=== PATIENT | female | born 1960 | race Caucasian/White ===

== ENCOUNTER → 2020-03-12 13:36 | Outpatient (CLI) | payer BC, SELFPAY ==
--- NOTE | ~2020-03-12 | MM_ITS ---
EXAMINATION: MM screening edilberto BI w roxana HISTORY: Screening TECHNIQUE: Craniocaudal and mediolateral oblique 3-D tomosynthesis images were obtained and synthetic 2-D images were generated. CAD analysis was submitted and interpreted. COMPARISON: Comparison to multiple prior studies sequentially, with oldest reviewed study dated 06/2011. BREAST PARENCHYMAL COMPOSITION: The breasts are heterogeneously dense, which may obscure small masses . FINDINGS: There is no evidence of suspicious mass, calcification, or architectural distortion to sugg est malignancy in either breast. There has been no suspicious interval change. IMPRESSION: 1. No mammographic evidence of malignancy. 2. Recommend routine screening mammography in one year. BI-RADS Category 1: Negative Reviewed, dictated and finalized at location A. N BARREL FILLER
== END ==
PROVIDERS: PCP Internal Medicine; Visit Provider Nurse Practitioner
DX: Z12.31 Encounter for screening mammogram for malignant neoplasm of breast (principal)
CPT/HCPCS: 77063; 77067

== ENCOUNTER 2020-03-13 08:48 | Outpatient (CLI) | payer BC, SELFPAY ==
--- NOTE | 2020-04-17 21:40 | WPDHOMESLEEP ---
Sleep Study - Home Unattended Date of Study: 03/13/20 Ordering Provider: Bill Ontiveros MD Interpreting Physician: Angelita Enriquez MD Home Sleep Study Type: Apnea Link Air Height: 1.63 m Weight: 87.09 kg Body Mass Index: 32.9 Neck Circumference (inches): 16.5 [place]: 11 Reason for Sleep Study loud snoring, excessive daytime sleepiness Sleep History Elaina Hutchison is a 59 year-old woman who snores loudly all the time. Her leaves the bedroom during the middle of the night. She has extremely dry cotton mouth in the morning. She has significant sinus drainage when she initially lies down to go to sleep which a noise her. Her told her that her loud snoring started about 2 years ago and it has worsened. She frequently awakens at night with heartburn, belching or coughing. She does not awaken from sleep feeling short of breath. She frequently has trouble sleep with a cold. She does not wake up gasping for breath at night and does not have breathing problems at night observed by others. She sweats excessively at night on occasion. She does not notice her heart pounding or beating irregularly at night. She frequently falls asleep during the day frequently involuntarily never while driving. She does not fall asleep while exerting physical effort. She does not have loss of muscle tone was strong emotion. She does not have daytime difficulties due to excessive sleepiness. 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 she does not feel paralyzed on waking or falling asleep and does not have vivid dreamlike scenes upon awakening or falling asleep. She is not afraid to go to sleep. She does not have nightmares. She frequently remembers her dreams. She frequently has racing thoughts. She occasionally feels sad or depressed. Very rarely she has anxiety. She occasionally has muscular tension. She frequently notices parts of her body jerking. She does not kick at night, does not have crawling and aching feelings in her legs at night, does not have any leg pain at night and does not have morning jaw pain. She occasionally grinds her teeth at night. She is not bothered by pain during the day and is not awakened by pain at night. She frequently wakes up feeling stiff in the morning with sore achy muscles occasionally with pain in the neck and spine. She has headaches, bowel disturbances, dizziness, fatigue and takes antacids regularly. she has excessive daytime sleepiness on occasion. She has gained 15 lb in the last year. Normal bedtime is 10:30 p.m. falling asleep within 30 minutes. She typically wakes up once at night or maybe not at all. If she wakes up around 4:30 a.m. she generally will stay awake. Most of the time she wakes up in the middle of the night. 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 She wakes up to urinate and will try to go back to bed. She wakes in the morning at 6:00 a.m.. On the weekends she stays awake until 1:30 a.m. and wakes at 9 in the morning. She estimates that she gets 6 hours of sleep normally. She sometimes falls asleep in the chair, , takes an unintended nap. She does not feel refreshed after a short nap. Habits: She has never smokes cigarettes. She has caffeine 1 serving per day. Alcohol is occasional, 1 or 2 drinks per month. No recreational drugs. [facility], [facility] Past Medical History Medical History (Updated 04/17/20 @ 21:52 by Angelita Enriquez MD) Chronic GERD Essential (primary) hypertension Meningioma Other hyperlipidemia Rhinitis Surgical History Surgical History (Updated 04/17/20 @ 21:50 by Angelita Enriquez MD) History of hysterectomy Family History Family History Father Hypertension Family history of diabetes mellitus in first degree relative Mother Family history of malignant neoplasm of breast in first degree relative Other Family history of attention deficit hyperactivity disorder (ADHD) Social
[2020-04-17 21:59] VITALS: BMI 32.9
== END 2020-03-13 08:49 | disposition home or self-care (01) ==
LOC: ANHCSM 08:51
PROVIDERS: PCP Internal Medicine; Visit Provider Internal Medicine
DX: G47.33 Obstructive sleep apnea (adult) (pediatric) (principal)
CPT/HCPCS: 95806

== ENCOUNTER → 2020-06-06 07:31 | Outpatient (CLI) | payer BC, SELFPAY ==
--- NOTE | ~2020-06-06 | US_ITS ---
EXAMINATION: US abdomen complete DATE: 06/06/2020 08:24 INDICATION: Abdominal pain TECHNIQUE: Multiple grayscale and Doppler ultrasound images of the abdomen were obtained. COMPARISON: 06/02/2011 FINDINGS: The head, body, and tail of the pancreas are normal. The liver demonstrates increased echog enicity, heterogenous echotexture, and decreased through transmission. No surface nodularity. Normal hepatopetal flow in the main portal vein. The gallbladder is normal with no abnormal wall thickening, pericholecystic fluid or stones. The normal common bile duct measures 4 mm. There was no sonographic Gramajo sign. The visualized portions of the aorta and inferior vena cava are normal. The right kidney measures 10.3 x 4.4 x 5.6 cm and contains a 3.5 cm cyst. The left kidney measures 11 .6 x 5.2 x 5.5 cm. The kidneys demonstrate normal parenchymal echogenicity. There is no hydronephrosi s. The spleen is normal in appearance and measures 9.7 cm. IMPRESSION: 1. Diffuse hepatic steatosis. Reviewed, dictated and finalized at location A.
== END ==
PROVIDERS: PCP Internal Medicine; Visit Provider Internal Medicine
DX: K76.0 Fatty (change of) liver, not elsewhere classified (principal)
CPT/HCPCS: 76700

== ENCOUNTER 2020-08-26 14:30 | Outpatient (RCR) | payer BC, SELFPAY ==
[2020-07-16 14:13] VITALS: BMI 31.1
[2020-07-16 14:25] VITALS: BMI 31.1
== END 2020-10-05 11:58 | disposition home or self-care (01) ==
LOC: ANHDMC 14:30
PROVIDERS: PCP Internal Medicine; Visit Provider Internal Medicine
DX: E11.9 Type 2 diabetes mellitus without complications (principal); Z71.3 Dietary counseling and surveillance; Z71.89 Other specified counseling
CPT/HCPCS: 97802; G0108; G0109

== ENCOUNTER 2020-12-17 14:32 | Outpatient (RCR) | payer BC, SELFPAY | END 2021-03-15 13:48 | disposition home or self-care (01) | LOC: ANHDMC 14:32 | PROVIDERS: PCP Internal Medicine; Visit Provider Internal Medicine | DX: E11.9 Type 2 diabetes mellitus without complications (principal); Z71.89 Other specified counseling | CPT/HCPCS: G0108 ==

== ENCOUNTER → 2021-04-14 13:36 | Outpatient (CLI) | payer BC, SELFPAY ==
--- NOTE | ~2021-04-14 | MM_ITS ---
EXAMINATION: MM screening edilberto BI w roxana HISTORY: Screening TECHNIQUE: Craniocaudal and mediolateral oblique 3-D tomosynthesis images were obtained and synthetic 2-D images were generated. CAD analysis was submitted and interpreted. COMPARISON: Comparison to multiple prior studies sequentially, with oldest reviewed study dated 06/2011. BREAST PARENCHYMAL COMPOSITION: The breasts are heterogenously dense, which may obscure small masses. FINDINGS: There is no evidence of suspicious mass, calcification, or architectural distortion to sugg est malignancy in either breast. There has been no suspicious interval change. IMPRESSION: 1. No mammographic evidence of malignancy. 2. Recommend routine screening mammography in one year. BI-RADS Category 1: Negative Reviewed, dictated and finalized at location A. 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
--- NOTE | ~2021-04-14 | DEXA_ITS ---
Bone Density Report Name: SAVANA VAZQUEZ Age: 60 Sex: Female Ethnicity: White Date of : 1960 Indication: osteopenia; height loss; prior fracture; hysterectomy; postmenopausal Referring Provider: Justino*Mariana Keller Study: Bone densitometry was performed. Exam Date: April 14, 2021 Accession number: [id number] Bone Density: Region BMD T-score Z-score Classification AP Spine (L1-L4) 0.889 -1.4 0.1 Osteopenia Femoral Neck (Left) 0.790 -0.5 0.8 Normal Total Hip (Left) 0.951 0.1 1.1 Normal Femoral Neck (Right) 0.802 -0.4 0.9 Normal Total Hip (Right) 0.952 0.1 1.1 Normal Total Hip Mean 0.952 0.1 1.1 Normal World Health Organization criteria for BMD impression classify patients as: Normal (T-score at or above -1.0), Osteopenia (T-score between -1.0 and -2.5), or Osteoporosis (T-score at or below -2.5). 10-year Fracture Risk(1): Major Osteoporotic Fracture 11% Hip Fracture 0.4% Reported Risk Factors: [place] (), Neck BMD=0.802, BMI=36.4, previous fracture (1) FRAX(R) Version 3.08. Fracture probability calculated for an untreated patient. Fracture probability may be lower if the patient has received treatment. Previous Exams: Region Exam Age BMD T-score BMD Change BMD Change Date g/cm2 vs Baseline vs Previous AP Spine(L1-L4) 04/14/2021 60 0.889 -1.4 -0.008 -0.004 01/28/2019 58 0.894 -1.4 -0.004 -0.004 02/11/2016 55 0.897 -1.4 Total Hip(Left) 04/14/2021 60 0.951 0.1 -0.018 0.041 01/28/2019 58 0.911 -0.3 -0.059* -0.059* 02/11/2016 55 0.970 0.2 Total Hip(Right) 04/14/2021 60 0.952 0.1 0.005 0.038 01/28/2019 58 0.914 -0.2 -0.034* -0.034* 02/11/2016 55 0.948 0.0 *Denotes significance at 95% confidence level, LSC for AP Spine = 0.022 g/cm2, LSC for Total Hip = 0.027 g/cm2 Clinical Information Provided by Patient: Has had a low trauma fracture Has used the following medications: Vitamin D, MTV Has the following medical conditions: Hysterectomy Patient maximum height was 64 Menopause Age: 37 No regular weight bearing exercise Drinks caffeinated beverages Onset of menses at age 12 Number of children 3 Impression: The patient has low bone mass, based on the Total Spine T-score. The patient has an estimated ten-year risk of hip fracture of 0.4% and an estimated ten-year ris
== END ==
PROVIDERS: Visit Provider Nurse Practitioner
DX: Z12.31 Encounter for screening mammogram for malignant neoplasm of breast (principal); Z13.820 Encounter for screening for osteoporosis; M85.88 Other specified disorders of bone density and structure, other site
CPT/HCPCS: 77063; 77067; 77080

== ENCOUNTER → 2021-07-06 00:14 | Outpatient (CLI) | payer BC, SELFPAY ==
[2021-07-06 11:49] LABS: Influenza A QL RT-PCR Negative (Negative); Influenza B QL RT-PCR Negative (Negative); SARS-CoV-2 RNA PCR Negative
== END ==
PROVIDERS: PCP Family Medicine; Visit Provider Family Medicine
DX: Z20.822 Contact with and (suspected) exposure to COVID-19 (principal)
CPT/HCPCS: 87502; C9803; U0003; U0005

== ENCOUNTER 2022-03-03 09:36 | Outpatient (CLI) | payer BC, SELFPAY ==
[2022-03-03 20:27] LABS: Alanine Aminotransferase 19 U/L (6-35); Albumin Level 4.4 g/dL (3.5-5.1); Alkaline Phosphatase 117 U/L (38-126); Anion Gap 5 mmol/L (8-16); Aspartate Amino Transferase 39 U/L (14-36); Bilirubin,Total 0.6 mg/dL (0.2-1.3); Blood Urea Nitrogen 13 mg/dL (7-17); Carbon Dioxide 32 mmol/L (22-30); Chloride 100 mmol/L (98-107); Cholesterol 160 mg/dL (0-200); Estimated Glomerular Filt Rate > 60; Glucose 107 mg/dL (65-110); HDL Direct 45 mg/dL; Potassium 3.3 mmol/L (3.4-5.0); Sodium 137 mmol/L (137-145); Triglycerides 173 mg/dL (<150)
[2022-03-03 20:38] LABS: LDL Cholesterol Direct 69 mg/dL
[2022-03-03 23:00] LABS: Hemoglobin A1C 6.3 % (<5.7)
== END 2022-03-03 09:37 | disposition home or self-care (01) ==
LOC: ANHGOSHLAB 09:39
PROVIDERS: PCP Family Medicine; Visit Provider Family Medicine
DX: E11.9 Type 2 diabetes mellitus without complications (principal); E78.49 Other hyperlipidemia; I10 Essential (primary) hypertension; Z13.29 Encounter for screening for other suspected endocrine disorder
CPT/HCPCS: 36415; 80053; 80061; 83036; 84443

== ENCOUNTER → 2022-06-29 11:14 | Outpatient (CLI) | payer BC, SELFPAY ==
--- NOTE | ~2022-06-29 | MM_ITS ---
EXAMINATION: MM screening edilberto BI w roxana HISTORY: Screening mammogram, family history of breast cancer in her mother. TECHNIQUE: Craniocaudal and mediolateral oblique 3-D tomosynthesis images were obtained and synthetic 2-D images were generated. CAD analysis was submitted and interpreted. COMPARISON: 04/14/2021, 03/12/2020, 01/28/2019 BREAST PARENCHYMAL COMPOSITION: The breasts are heterogeneously dense, which may obscure small masses . FINDINGS: No suspicious mass, calcification, or architectural distortion are identified in either rhonda ast to suggest malignancy. There has been no suspicious interval change. IMPRESSION: 1. No mammographic evidence of malignancy. 2. Recommend routine screening mammography in one year. BI-RADS Category 1: Negative Reviewed, dictated and finalized at location A.
== END ==
PROVIDERS: PCP Family Medicine; Visit Provider Nurse Practitioner
DX: Z12.31 Encounter for screening mammogram for malignant neoplasm of breast (principal)
CPT/HCPCS: 77063; 77067

== ENCOUNTER → 2023-02-06 11:15 | Outpatient (CLI) | payer BC, SELFPAY ==
--- NOTE | ~2023-02-06 | XR_ITS ---
Right Knee Technique: AP, lateral, and sunrise views were obtained. Clinical History: Pain Findings: No fracture or dislocation is seen. Osseous alignment is anatomic. There is mild spurring o f the patellofemoral and lateral joint line. Soft tissues are unremarkable. No joint effusion is seen . Impression: Mild spurring, as above. Reviewed, dictated and finalized at location . 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
== END ==
PROVIDERS: PCP Family Medicine; Visit Provider Family Medicine
DX: M25.761 Osteophyte, right knee (principal)
CPT/HCPCS: 73564

== ENCOUNTER 2023-02-17 08:41 | Outpatient (CLI) | payer BC, SELFPAY ==
--- NOTE | ~2023-02-17 | MR_ITS ---
MRI of the right knee Clinical history: Pain Technique: Coronal proton density and proton density-weighted images, sagittal proton-density and T2 fat-sat images, and axial proton-density fat-saturated images were acquired. Findings: Anterior and posterior cruciate ligaments are intact. Medial collateral ligament and the la teral collateral ligament complex are intact. Popliteus tendon is intact. There is prominent intrasubstance degenerative signal to posterior root of the medial meniscus. Parti al tearing is a potential consideration, but no complete tear clearly identified. No lateral meniscal tear seen. There is extensive high-grade chondral malacia the patella with irregularity along the patellar apex and lateral patellar facet. Remaining articular cartilage is intact, there is minimal thinning. Extensor mechanism is intact. No significant joint effusion or Vaughn's cyst. Impression: Prominent intrasubstance degenerative signal at the posterior root of the medial meniscus with questi onable partial tearing this region, now complete tear clearly identified. High-grade chondral malacia patella with irregularity of the articular surface at the apex and latera l patellar facet. Reviewed, dictated and finalized at [facility]. 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 High-grade chondral malacia patella with irregularity of the articular surface at the apex and lateral patellar facet.
== END 2023-02-17 08:42 | disposition home or self-care (01) ==
PROVIDERS: PCP Family Medicine; Visit Provider Family Medicine
DX: M23.91 Unspecified internal derangement of right knee (principal)
CPT/HCPCS: 73721

== ENCOUNTER 2023-11-15 12:11 | Outpatient (CLI) | payer BC, SELFPAY ==
--- NOTE | ~2023-11-15 | MM_ITS ---
EXAMINATION: MM screening edilberto BI w roxana HISTORY: Screening mammogram, family history of breast cancer in her mother. TECHNIQUE: Craniocaudal and mediolateral oblique 3-D tomosynthesis images were obtained and synthetic 2-D images were generated. CAD analysis was submitted and interpreted. COMPARISON: 06/29/2022, 04/14/2021, 03/12/2020, 01/28/2019 BREAST PARENCHYMAL COMPOSITION:Not Dense. There are scattered areas of fibroglandular density. FINDINGS: No suspicious mass, calcification, or architectural distortion are identified in either rhonda ast to suggest malignancy. There has been no suspicious interval change. IMPRESSION: No mammographic evidence of malignancy. Recommend routine screening mammography in one year. BI-RADS Category 1: Negative Reviewed, dictated and finalized at [facility].
== END 2023-11-15 12:12 | disposition home or self-care (01) ==
LOC: MICIMG 12:14
PROVIDERS: PCP Family Medicine; Visit Provider Nurse Practitioner
DX: Z12.31 Encounter for screening mammogram for malignant neoplasm of breast (principal)
CPT/HCPCS: 77063; 77067

== ENCOUNTER 2024-08-16 10:25 | Outpatient (CLI) | payer MEDICARE, SELFPAY ==
--- NOTE | ~2024-08-16 | DEXA_ITS ---
Bone Density Report Name: SAVANA VAZQUEZ Age: 64 Sex: Female Ethnicity: White Date of : 1960 Indication: osteopenia; hysterectomy; Referring Provider: CECILIA WINN Study: Bone densitometry was performed. Exam Date: August 16, 2024 Accession number: [id number] Bone Density: Region BMD T-score Z-score Classification AP Spine(L1-L4) 0.892 -1.4 0.3 Osteopenia Femoral Neck (Left) 0.798 -0.5 1.0 Normal Total Hip (Left) 0.922 -0.2 1.1 Normal Femoral Neck (Right) 0.797 -0.5 1.0 Normal Total Hip (Right) 0.906 -0.3 0.9 Normal Total Hip Mean 0.914 -0.3 1.0 Normal World Health Organization criteria for BMD impression classify patients as: Normal (T-score at or above -1.0), Osteopenia (T-score between -1.0 and -2.5), or Osteoporosis (T-score at or below -2.5). 10-year Fracture Risk(1): Major Osteoporotic Fracture 6.7% Hip Fracture 0.3% Reported Risk Factors: [place] (), Neck BMD=0.798, BMI=35.7 (1) FRAX(R) Version 3.08. Fracture probability calculated for an untreated patient. Fracture probability may be lower if the patient has received treatment. Previous Exams: -- Region Exam Age BMD T-score BMD Change BMD Change Date g/cm2 vs Baseline vs Previous -- AP Spine (L1-L4) 08/16/2024 64 0.892 -1.4 -0.6% 0.3%# 04/14/2021 60 0.889 -1.4 -0.9%# -0.5%# 01/28/2019 58 0.894 -1.4 -0.4% -0.4% 02/11/2016 55 0.897 -1.4 Total Hip(Left) 08/16/2024 64 0.922 -0.2 -4.9%* -3.0%# 04/14/2021 60 0.951 0.1 -1.9%# 4.5%# 01/28/2019 58 0.911 -0.3 -6.1%* -6.1%* 02/11/2016 55 0.970 0.2 Total Hip(Right) 08/16/2024 64 0.906 -0.3 -4.4%* -4.8%# 04/14/2021 60 0.952 0.1 0.5%# 4.2%# 01/28/2019 58 0.914 -0.2 -3.6%* -3.6%* 02/11/2016 55 0.948 0.0 -- *Denotes significance at 95% confidence level, LSC for AP Spine = 0.022 g/cm2, LSC for Total Hip = 0.027 g/cm2 # Denotes dissimilar scan types or analysis methods Clinical Information Provided by Patient: Has used the following medications: Vitamin D Has the following medical conditions: Hysterectomy Patient maximum height was 64 Menopause Age: 37 Drinks caffeinated beverages Onset of menses at age 13 Number of children 3 Impression: The patient has low bone mass, based on the Total Spine T-score. The patient has an estimated ten-year risk of hip fracture of 0.3% and an estimated ten-year risk of major fracture of 6.7%, based on the WHO FRAX algorithm. Unable to evaluate interval change due to the use of different scan modes. Discussion: BONE DENSITY IS LOW AT ONE OR MORE SKELETAL SITES. This patient's lowest T-score is low at one or more skeletal sites. It meets the World Health Organization's (WHO) criteria for ?low bone mass? (T-score between -1.0 and -2.5). The patient's 10-year risk of fracture as calculated by FRAX is less than the threshold where pharmacological therapy is recommended by the National Osteoporosis Foundation (NOF). However, all treatment decisions require clinical judgment and consideration of individual patient factors, including patient preferences, comorbidities, previous drug use, risk factors not captured in the FRAX model (e.g., frailty, falls, vitamin D deficiency, increased bone turnover, interval significant decline in bone density) and possible under or overestimation of fracture risk by FRAX. The patient should follow a healthful lifestyle (good nutrition with adequate calcium and vitamin D, and appropriate weight-bearing exercise). Follow-Up: Consider repeating this study in 2 to 3 years to reassess this patient's status, or sooner if there is some new clinical indication. Reported by: NATE on 08/19/2024 2:04:00 PM. Reviewed, dictated and finalized at location A.
== END 2024-08-16 10:26 | disposition home or self-care (01) ==
LOC: MICIMG 10:26
PROVIDERS: PCP Nurse Practitioner; Visit Provider Obstetrics & Gynecology Gynecology
DX: M85.88 Other specified disorders of bone density and structure, other site (principal); Z13.820 Encounter for screening for osteoporosis; Z78.0 Asymptomatic menopausal state
CPT/HCPCS: 77080

== ENCOUNTER 2024-08-28 10:58 | Outpatient (CLI) | payer MEDICARE, SELFPAY ==
--- NOTE | ~2024-08-28 | US_ITS ---
Pelvic ultrasound. Clinical History: Bloating Technique: Realtime transabdominal and transvaginal scanning of the pelvis was performed. Color flow Doppler and Doppler spectral analysis were performed. Findings: The uterus is absent, compatible prior hysterectomy. The right ovary is not visualized. Patient reports prior right oophorectomy. No significant right ova dana or adnexal mass is seen. The left ovary is not visualized. No significant left ovarian or adnexal mass is seen. There is no evidence of free fluid in the cul de sac. Impression: Nonvisualization of uterus and ovaries. History of hysterectomy and right oophorectomy. No abnormalit y seen. Reviewed, dictated and finalized at location M. Impression: Nonvisualization of uterus and ovaries. History of hysterectomy and right oopho rectomy. No abnormality seen.
== END 2024-08-28 10:59 | disposition home or self-care (01) ==
LOC: MICIMG 11:00
PROVIDERS: PCP Nurse Practitioner; Visit Provider Nurse Practitioner
DX: R14.0 Abdominal distension (gaseous) (principal); Z90.710 Acquired absence of both cervix and uterus
CPT/HCPCS: 76830; 76856

== ENCOUNTER 2024-10-30 00:41 | Day surgery (SDC) | payer MEDICARE, SELFPAY ==
--- OUTSIDE RECORDS SUMMARY | 2024-04-17 09:34 | XMS_ITS | Continuity of Care Document ---
Author Organization [facility] Address [address] [place] [address] Phone Care Team Providers Care Map Editor Name Role Phone Alonzo Ely MD Unavailable Unavailable Allergies, Adverse Reactions, Alerts Substance Reaction Status Criticality No Known Allergies Active No Inform ation Medications Medication Instructions Dosage Effective Dates (start - stop) Status Comments mirabegron ER 25 mg tablet,extended release 24 hr take 1 tablet by oral route every day swallowing whole with water. Do not crush, chew and/or divide. 25 MG - Active SOVUNA (unknown strength) Not Available - Active Procedures Procedure Date Cystourethroscopy (separate procedure) J Pt Doc No Events On Discharge 5 Pt W/o Preop Order IV AB Prop 5 cystoscopy PVR &/or Bladder Cap By Portable U/S, No n-imaging Level 4- New Office Complex e/m visit add on UA auto w/o micro Advance Directives Directive Yes / No Effective Date File Name No Information Encounters Encounter Description Practice Location Reason(s) For Visit Diagnoses Date Provider Providers Copied on Encounter [facility], [facility] [place], [place], [id number] , [place] tel:[phone] [place] [facility] 95 No Information 5 Solis Rosado. [address] [place] [address], [facility] [address], [place], [address], [place]. tel:[phone] [facility], [address] [place], [place], [id number] , [place] tel:[phone] [facility] [place] No Information 5 [facility]. [address] [place], [place], [id number], [place]. tel:[phone] Referring Provider: Hakan Ruiz, [address] [place] [address] [place], [address]. tel:[phone] [facility], [address] [place], [address], [place] tel:[phone] [facility] [place] Hematuria, GrossOther microscopic hematuria 5 [facility]. [address] [place] [address], [facility] [place], [address], [place]. tel:[phone] [facility], [address] [place], [place], [id number] , [place] tel:[phone] [facility] [place] Hematuria, Gross 5 [facility]. [address] [place] [address], [facility] [place], [address], [place]. tel:[phone] Referring Provider: Hakan Ruiz, [address] [place] [address] [place], [address]. tel:[phone] [facility], [address] [place], [place], [id number] , [place] tel:[phone] [facility] [place] Hematuria, Gross 5 [facility]. [address] [place] [address], [facility] [place], [address], [place]. tel:[phone] Level 4- New Office [facility], [address] [place], [place], [id number] , [place] tel:[phone] [place] [facility] 94 Hematuria, GrossElevated blood-pressure reading, without diagnosis of hypertensionOver active bladder 4 [facility], [place], [place], [address], [place]. tel:[phone] Referring Provider: Aileen Caldera, [address], [place], [address]. tel:[phone] Family History Family Member Type Diagnosis Age At Onset Brother Problem (finding) Renal disease Brother Problem (finding) Renal failure Payers Payer name Insurance type Covered democrat ID Authoriza tion(s) [employer] Medicare PPO [id number] Medicaid [place] [id number] Social History Type Description Quantity Date Captured Comments Alcohol Use Details Unknown Caffeine Use Details Unknown Tobacco Use Status Smoking Status No Information Sex Female Chief Complaint And Reason For Visit No Information Reason For Referral Reason For Referral No Information Plan Of Treatment Date Type Action Status Goal Tobacco cessation counseling completed Future Order: Lab Order Urine Cy tology ([id number]), Collected on: Ordered History Of Present Illness Encounter Date Complaint History Of Prese nt Illness No Information Functional Status Date Functional Assessmen t No Information Instructions Date Instruction Additional Infor shivam 63 yo F with intermi ttent gross hematuria brother with bladder ca smoker she is having nocturia and OAB symptoms PVR wnl todayA/P OAB - trial gemtesa gross hematuria - cysto, cytology, [facility]U JUANITA Related to Hematuria, Gross Assessments Type Assessment Date No Information Patient Care Teams Name Effective Dates (start - stop) Status Members No Information
[2024-10-21 10:44] VITALS: BMI 35.5
--- OUTSIDE RECORDS SUMMARY | 2024-10-30 00:45 | XMS_ITS | Clinical Summary ---
Author Organization [facility] Main [facility] s Address [address] [place] [address] Care Team Providers Care Hand Inserter Operator Name Role Phone Viridiana Church MD, Zafar Deal Unavailable Tony Maxwell DO Primary Care Provider [phone] Allergies Active Allergy Reactions Criticality Noted Date Comments Mold Nitrofurantoin Penicillins Sulfa (Sulfonamide Antibiotics) Medications ibuprofen (ADVIL ORAL) Active cetirizine (ZyrTEC) 10 mg tablet Active atenolol (TENORMIN) 50 mg tablet Active atorvastatin (LIPITOR) 40 mg tablet Active hydroCHLOROthiazi de (HYDRODIURIL) 25 mg tablet Active multivitamin tablet Active omeprazole OTC (PriLOSEC OTC) 20 mg EC tablet Active pioglitazone (ACTOS) 15 mg tablet Take 15 mg by mouth daily 05/14/19 22 Active ondansetron ODT (ZOFRAN-ODT) 4 mg disintegrating tablet DISSOLVE 1 TABLET UNDER TONGUE EVERY 8 HOURS NEEDED FOR NAUSEA/VOMITING 05/08/19 22 Active omeprazole (PriLOSEC) 40 mg capsule TAKE 1 CAPSULE BY MOUTH EVERY DAY 30 MINUTES BEFORE MORNING MEAL FOR 30 DAYS 05/03/19 22 Active metFORMIN (GLUCOPHAGE) 500 mg tablet Take 500 mg by mouth 2 (two) times a day 03/18/19 22 Active OneTouch Delica Plus Lancet 33 gauge misc USE 1 LANCET TO CHECK FASTING GLUCOSE DAILY 04/09/19 22 Active influenza quadrivalent (Afluria Qd ,3yr up,,PF,) 60 mcg (15 mcg x 4)/0.5 mL syringe Afluria Qd (36 mos up)(PF)60 mcg (15 mcg x4)/0.5 mL IM syringe Active diazePAM (VALIUM) 5 mg tablet TAKE 1 TABLET BY MOUTH AT BEDTIME NEEDED FOR DIZZINESS OR VERTIGO 05/08/19 22 Active cyclobenzaprine (FLEXERIL) 10 mg tablet cyclobenzaprine 10 mg tablet Active OneTouch Verio test strips strip USE TO TEST FASTING BLOOD GLUCOSE ONCE DAILY 04/08/19 22 Active Active Problems Problem Noted Date Diagnosed Date Benign neoplasm of cerebral meninges 11/20/2015 Ankle pain 11/24/2014 Dizziness 07/19/2013 Hypertension 07/19/2013 Nausea 07/19/2013 Hypercholesterolemia 07/19/2013 Joint pain 07/19/2013 Immunizations Immunization Administration Dates Next Due Influenza, Trivalent, Preservative Free, Intramu scular 11/27/2012 Surgical History Surgery Date Site/Laterality Comments CA APPENDECTOMY Appendectomy - (Added by TW Conv) CA TONSILLECTOMY & ADENOIDEC CHANDRAKANT <AGE 12 Tonsillectomy With Adenoidectomy - (Added by TW Conv) CA STOT/TOT HYSTERECTOMY AFT ER DELIVERY Hysterectomy - (Added by TW Conv) Medical History Medical History Date Comments Personal history of other di seases of the digestive system History of irritable bowel s yndrome - (Added by TW Conv) Family History Medical History Relation Name Comments Hyperlipidemia Father Family histor y of hypercholesterolemia - (Added by TW Conv) Hypertension Father Family history of hypertension - (Added by TW Conv) Breast cancer Mother Family history of malignant neoplasm of breast - (Added by TW Conv) Depression Mother Family history of depression - (Added by TW Conv) Diabetes Mother Family history of diabetes mellitus - (Added by TW Conv) Fibromyalgia Mother Family history of fibromyalgia - (Added by TW Conv) Hyperlipidemia Mother Family histor y of hypercholesterolemia - (Added by TW Conv) Hypertension Mother Family history of hypertension - (Added by TW Conv) Depression Other 1 Family history of depression - Relation: Grandparent (Added by TW Conv) Depression Other 2 Family history of depression - Relation: Uncle (Added by TW Conv) Lung cancer Other 3 Family history of lung cancer - Relation: Grandparent (Added by TW Conv) Relation Name Status Comments Father Mother Other 1 Other 2 Other 3 Social History Tobacco Use Types Packs/Day Years Used Date Smoking Tobacco: Never Comments Unknown Sex and Gender Information Value Date Recorded Sex Assigned at Not on file 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 Gender Identity Not on file Sexual Orientation Not on file Obstetrics History Last Filed Vital Signs Vital Sign Reading Time Taken Comments Blood Pressure 133/80 07/11/2017 9:24 AM CDT Pulse 70 07/11/2017 9:24 AM CDT Temperature - - Respiratory Rate - - Oxygen Saturation - - Inhaled Oxygen Concentration - - Weight 88.5 kg (195 lb) 05/21/2023 1:31 PM CDT Height 162.6 cm (5' 4) 05/21/2023 1:31 PM CDT Body Mass Index 33.47 05/21/2023 1:31 PM CDT Plan of Treatment Health Maintenance Due Date Last Done Comments Breast Cancer Screening-Mammogram 1960 Cervical Cancer Screening 1960 Colon Cancer Screening-Colonoscopy 1960 Depression Screening 1960 Fall Risk Assessment 1960 Hepatitis C Screening 1960 Osteoporosis Screening-Bone Density Scan 1960 DTaP/Tdap/Td Vaccine (1 - Tdap) 08/13/1970 Hepatitis B Screening 08/13/1977 Pneumococcal vaccine 65+ (1 of 1 - PCV) 08/13/2009 Zoster Vaccine (1 of 2) 08/13/2009 Covid-19 Vaccine (4 - season) 2023 01/16/2021, 05/09/2020, 04/11/2020 Well Visit 65+ 08/13/2024 Influenza Vaccine (#1) 2024 11/22/2018, 2012 Insurance [facility] [employer] [place] [employer] [place] Care Teams Hand Inserter Operator Relationship Specialty Start Date End Date Tony Maxwell DO [address] [place] [address] PCP - General Family Medicine 09/22/22 Zafar Kemp Jr., MD [address] [place] [address] Referring Physician Neurosurgery 06/14/21
[2024-10-30 10:28] VITALS: BP 126/79; PULSE 71; RESP 18; TEMP 36.6; O2SAT 99; BMI 35.9
[2024-10-30] MEDS: LACTATED RINGERS 1,000 ML 150 ML IV CONT (10:35)
--- NOTE | 2024-10-30 11:08 | WPDANESEPPF ---
Anes - Initial Pre Proc Eval Procedure: Operation Date: 10/30/24 11:45 Proposed Procedures p Esophagogastroduodenoscopy - Angel Luis Chao MD Date/Time: 10/30/24 11:08 Surgeon: Angel Luis Chao MD Pre Op Diagnosis: Gastro-esophageal reflux disease without esophagit Patient Data Age: 64 Gender: F Height: 1.6 m Weight: 92.1 kg Last Vital Signs Temp 36.6 C 10/30/24 10:28 Pulse 71 10/30/24 10:28 Resp 18 10/30/24 10:28 BP 126/79 10/30/24 10:28 Pulse Ox 99 10/30/24 10:28 O2 Del Method Room Air 10/30/24 10:28 Allergies Allergy/AdvReac Type Severity Reaction Status Date / Time nitrofurantoin Allergy Unknown Unknown Verified 10/30/24 10:26 oxycodone Allergy Unknown Vomiting Verified 10/30/24 10:26 Penicillins Allergy Unknown Hives Verified 10/30/24 10:26 Sulfa (Sulfonamide Allergy Unknown Vomiting Verified 10/30/24 10:26 Antibiotics) NITROFURANTOIN MACROCRYSTAL Allergy Unknown Unknown Uncoded 10/30/24 10:26 Home Medications ?Medication ?Instructions ?Recorded ?Confirmed ?Type blood sugar diagnostic (OneTouch #100 ea 05/11/20 10/02/24 Rx Ultra Blue Test Strip) blood-glucose meter (OneTouch #1 ea 05/11/20 10/02/24 Rx Ultra2 Meter) cetirizine 5 mg-pseudoephedrine ER 1 tablet PO DAILY 01/16/23 10/30/24 History 120 mg tablet,extended release,12hr (Zyrtec-D) cholecalciferol (vitamin D3) 50 50 mcg PO DAILY 01/16/23 10/30/24 History mcg (2,000 unit) capsule multivitamin 1 tablet PO DAILY 01/16/23 10/30/24 History lancets 33 gauge (OneTouch Delcandace #100 ea 09/22/23 10/02/24 Rx Plus Lancet) atenolol 50 mg tablet 50 mg PO DAILY #90 tabs 08/15/24 10/30/24 Rx atorvastatin 40 mg tablet 40 mg PO DAILY #90 tabs 08/15/24 10/30/24 Rx blood sugar diagnostic (OneTouch #100 ea 08/15/24 10/02/24 Rx Verio test strips) hydrochlorothiazide 25 mg tablet 25 mg PO DAILY #90 tabs 08/15/24 10/30/24 Rx lancets #100 ea 08/15/24 10/02/24 Rx metformin 500 mg tablet 500 mg PO DAILY #90 tabs 08/15/24 10/30/24 Rx pioglitazone 15 mg tablet 15 mg PO DAILY #90 tabs 08/15/24 10/30/24 Rx ibuprofen 200 mg tablet (Advil) 400 mg PO TID 10/30/24 10/30/24 History Laboratory Tests 10/30/24 10:35 POC Capillary Glucose 121 H mg/dl (65-105) Patient hx anesthesia problems: none Family hx anesthesia problems: none Results Review: All pre-operative results and documents have been reviewed as part of the pre-operative evaluation. [facility] Past Medical History Medical History (Updated 10/29/24 @ 13:23 by Eyad Thomson DO) Obstructive sleep apnea IBS (irritable bowel syndrome) Fatty liver Type 2 diabetes mellitus Rhinitis Chronic GERD Essential (primary) hypertension Meningioma Other hyperlipidemia Surgical History Surgical History History of hysterectomy Family History Family History Father Hypertension Family history of diabetes mellitus in first degree relative Mother Family history of malignant neoplasm of breast in first degree relative Other Family history of attention deficit hyperactivity disorder (ADHD) Social History Social History Smoking status: Never smoker Alcohol intake: current Alcohol use details: socially Substance use: never Substance use type: does not use Lack of Transportation: No Lack of Food: Never True Current Housing: I Have Housing Concerned About Future Housing: No Difficulty Paying Gas/Electric Bills: No Difficulty Paying for Meds: No Currently Unemployed: No Education: Bachelor's Degree Difficulty w/ Childcare or Family Care: No Living arrangements: with family Additional living arrangements comments: Occupation/Education: retired Gender identity (if verbalized by the patient): Female Sexual Orientation (if Verbalized by the Patient): Straight or Heterosexual Spiritual care concerns: No Agree to blood products: Yes Anes - Eval Final PreProcedure Day of Procedure 10/30/24 11:08 Patient weight: obese Heart: regular rate and rhythm Lungs: clear to auscultation Airway: Mallampati scale class II Neurological: alert and oriented Last oral intake: >/= 8 hours ASA classification: III Emergent: no Anesthetic plan: proceed Anesthesia type and monitoring: general GIVS and standard monitoring Results Review: All pre-operative results and documents have been reviewed as part of the pre-operative evaluation. Informed Consent: The patient's anesthetic plan and its attendant risks and benefits were discussed with the patient/family/POA. Questions were solicited and answers provided to the satisfaction of the patient/family/POA.
--- NOTE | 2024-10-30 11:16 | PM.HPGS ---
History of Present Illness History of Present Illness Consent: Risks, benefits, and alternatives have been discussed and questions answered. Patient agrees to proceed with procedure. Chief complaint: Gastro-esophageal reflux disease without esophagit Narrative: Elaina Hutchison is a 64 year old female here for egd, intermittent n/v Review of Systems Review of Systems: All systems reviewed & are unremarkable except as noted in HPI and below PMFSH Past Medical History Medical History (Updated 10/30/24 @ 11:16 by Angel Luis Chao MD) Nausea & vomiting Obstructive sleep apnea IBS (irritable bowel syndrome) Fatty liver Type 2 diabetes mellitus Rhinitis Chronic GERD Essential (primary) hypertension Meningioma Other hyperlipidemia Surgical History Surgical History History of hysterectomy Family History Family History Father Hypertension Family history of diabetes mellitus in first degree relative Mother Family history of malignant neoplasm of breast in first degree relative Other Family history of attention deficit hyperactivity disorder (ADHD) Social History Social History Smoking status: Never smoker Alcohol intake: current Alcohol use details: socially Substance use: never Substance use type: does not use Lack of Transportation: No Lack of Food: Never True Current Housing: I Have Housing Concerned About Future Housing: No Difficulty Paying Gas/Electric Bills: No Difficulty Paying for Meds: No Currently Unemployed: No Education: Bachelor's Degree Difficulty w/ Childcare or Family Care: No Living arrangements: with family Additional living arrangements comments: Occupation/Education: retired Gender identity (if verbalized by the patient): Female Sexual Orientation (if Verbalized by the Patient): Straight or Heterosexual Spiritual care concerns: No Agree to blood products: Yes Meds Home Medications and Allergies Home Medications ?Medication ?Instructions ?Recorded ?Confirmed ?Type blood sugar diagnostic (OneTouch #100 ea 05/11/20 10/02/24 Rx Ultra Blue Test Strip) blood-glucose meter (OneTouch #1 ea 05/11/20 10/02/24 Rx Ultra2 Meter) cetirizine 5 mg-pseudoephedrine ER 1 tablet PO DAILY 01/16/23 10/30/24 History 120 mg tablet,extended release,12hr (Zyrtec-D) cholecalciferol (vitamin D3) 50 50 mcg PO DAILY 01/16/23 10/30/24 History mcg (2,000 unit) capsule multivitamin 1 tablet PO DAILY 01/16/23 10/30/24 History lancets 33 gauge (Julia Aranda #100 ea 09/22/23 10/02/24 Rx Plus Lancet) atenolol 50 mg tablet 50 mg PO DAILY #90 tabs 08/15/24 10/30/24 Rx atorvastatin 40 mg tablet 40 mg PO DAILY #90 tabs 08/15/24 10/30/24 Rx blood sugar diagnostic (OneTouch #100 ea 08/15/24 10/02/24 Rx Verio test strips) hydrochlorothiazide 25 mg tablet 25 mg PO DAILY #90 tabs 08/15/24 10/30/24 Rx lancets #100 ea 08/15/24 10/02/24 Rx metformin 500 mg tablet 500 mg PO DAILY #90 tabs 08/15/24 10/30/24 Rx pioglitazone 15 mg tablet 15 mg PO DAILY #90 tabs 08/15/24 10/30/24 Rx ibuprofen 200 mg tablet (Advil) 400 mg PO TID 10/30/24 10/30/24 History Allergies Allergy/AdvReac Type Severity Reaction Status Date / Time nitrofurantoin Allergy Unknown Unknown Verified 10/30/24 10:26 oxycodone Allergy Unknown Vomiting Verified 10/30/24 10:26 Penicillins Allergy Unknown Hives Verified 10/30/24 10:26 Sulfa (Sulfonamide Allergy Unknown Vomiting Verified 10/30/24 10:26 Antibiotics) NITROFURANTOIN MACROCRYSTAL Allergy Unknown Unknown Uncoded 10/30/24 10:26 Vital Signs Vital Signs - 24 hr 10/30/24 10:28 Temperature 98 F Pulse Rate 71 Respiratory Rate 18 Blood Pressure 126/79 Pulse Oximetry 99 Oxygen Delivery Room Air Exam Const: General: comfortable and no acute distress HENMT: Face/Nose/Sinus: Normal nares present Eyes: General: appearance normal, both eyes and all related structures Neck: Neck: no JVD Resp: Auscultation: clear to auscultation bilaterally Cardio: Rate: regular rate Rhythm: regular rhythm GI: Inspection: non-distended GI Palp: Yes Soft to palpation Skin: General skin exam: normal color Neuro: Speech: normal speech Extrem: General: normal to inspection Psych: Mental Status: mental status grossly normal Assessment and Plan Assessment and plan (1) Nausea & vomiting: Code(s): R11.2 - Nausea with vomiting, unspecified Status: Acute Assessment and Plan: egd with bx
--- NOTE | 2024-10-30 11:20 | S_PTH ---
PATIENT: Elaina Hutchison LOC: [facility]#:[id number] AGE/SX: 64/F ROOM: RE10/30/[address]: Angel Luis Chao MD : 1960 BED: DIS: 10/30/2024 SPEC #: [id number] RECD: 10/30/24 13:17 STATUS: EDWARDO RELiu #: [id number] UMER: 10/30/24 11:[address]: Angel Luis hCao DEPT: [facility] Surgical RECD BY: Ilana Lund ENTERED: 10/30/24 13:17 SP TYPE: Surgical OTHR DR: Elizabeth Jamison, [place] Tissues: A - Small Bowel Bx B - Gastric Biopsy Procedures: Hematoxylin and Eosin Stain Gross and Microscopic Level 4
[2024-10-30 11:23] VITALS: BP 111/71; PULSE 66; RESP 16; O2SAT 94
[2024-10-30 11:33] VITALS: BP 112/71; PULSE 64; RESP 16; O2SAT 95
[2024-10-30 11:43] VITALS: BP 129/76; PULSE 64; RESP 13; O2SAT 100
== END 2024-10-30 11:56 | disposition home or self-care (01) ==
PROVIDERS: PCP Nurse Practitioner; Referring Provider Nurse Practitioner Family; Visit Provider Internal Medicine Gastroenterology
PROC: 0DJ08ZZ Inspection of Upper Intestinal Tract, Via Natural or Artificial Opening Endoscopic (ICD-10-PCS; CPT 43239; principal; 2024-10-30 11:45)
DX: K29.50 Unspecified chronic gastritis without bleeding (principal); R11.2 Nausea with vomiting, unspecified; E11.9 Type 2 diabetes mellitus without complications; E66.9 Obesity, unspecified; Z68.36 Body mass index [BMI] 36.0-36.9, adult
CPT/HCPCS: 43239; 82948; 88305; J2704; J7120

== ENCOUNTER 2024-11-18 10:26 | Outpatient (CLI) | payer MEDICARE, SELFPAY ==
--- NOTE | ~2024-11-18 | MM_ITS ---
EXAMINATION: MM screening edilberto BI w roxana HISTORY: Screening TECHNIQUE: Craniocaudal and mediolateral oblique 3-D tomosynthesis images were obtained and synthetic 2-D images were generated. CAD analysis was submitted and interpreted. COMPARISON: Comparison to multiple prior studies sequentially, with oldest reviewed study dated , 01/28/2019 BREAST PARENCHYMAL COMPOSITION: The breasts are heterogeneously dense, which may obscure small masses. FINDINGS: There is no evidence of suspicious mass, calcification, or architectural distortion to suggest malignancy in either breast. IMPRESSION: 1. No mammographic evidence of malignancy. 2. Recommend routine screening mammography in one year. BI-RADS Category 1: Negative Reviewed, dictated and finalized at location B.
== END 2024-11-18 10:27 | disposition home or self-care (01) ==
PROVIDERS: PCP Obstetrics & Gynecology Gynecology; Visit Provider Nurse Practitioner
DX: Z12.31 Encounter for screening mammogram for malignant neoplasm of breast (principal)
CPT/HCPCS: 77063; 77067